=== PATIENT | female | born 1945 | race Hispanic/Latino ===

== ENCOUNTER → 2018-11-14 | Outpatient (CLI) | payer MEDICARE ==
[~2018-11-14] MED LIST: ALEN70TA10 PO; CALC-877 PO; EZET10TA13 PO; LINA5TAB PO; LISI-613 PO; METF750T2 PO; OMEP40CA37 PO
== END | disposition home or self-care (01) ==
LOC: RAH 13:47
PROVIDERS: ATTEND Family Medicine
DX: M51.36 Other intervertebral disc degeneration, lumbar region (principal); M51.26 Other intervertebral disc displacement, lumbar region; M48.061 Spinal stenosis, lumbar region without neurogenic claudication
CPT/HCPCS: 72148

== ENCOUNTER 2022-08-08 15:21 | Emergency (ER) | payer OTHER ==
[~2022-08-08 15:21] MED LIST changes: -ALEN70TA10 PO; +ALEN70TA80 PO; -LISI-613 PO; +LISI20TA24 PO; -METF750T2 PO; +METF750T46 PO; +OMEP40CA21 PO; -OMEP40CA37 PO
[2022-08-08 15:24] VITALS: BP 109/70
[2022-08-08] MEDS ORDERED: LIDOCAINE 5% TOPICAL PATCH TP ONE (16:30)
[2022-08-08] MEDS ORDERED: LIDO700A30 TP (16:32)
== END 2022-08-08 16:48 | disposition home or self-care (01) ==
LOC: EDH 15:21
DX: S83.8X1A Sprain of other specified parts of right knee, initial encounter (principal); I10 Essential (primary) hypertension; E11.9 Type 2 diabetes mellitus without complications; Z79.84 Long term (current) use of oral hypoglycemic drugs; Z79.899 Other long term (current) drug therapy; Z98.890 Other specified postprocedural states; X58.XXXA Exposure to other specified factors, initial encounter; Y93.89 Activity, other specified; Y92.89 Other specified places as the place of occurrence of the external cause; Y99.8 Other external cause status
CPT/HCPCS: 73562

== ENCOUNTER 2022-09-14 01:45 | Emergency (ER) | payer OTHER ==
[~2022-09-14] VITALS: Ht 154.9 cm; Wt 56.7 kg
[~2022-09-14 01:45] MED LIST changes: +LIDO700A30 TP
[2022-09-14 02:18] LABS: APPEARANCE,URINE CLOUDY (CLEAR); BILIRUBIN,URINE NEGATIVE (NEGATIVE); COLOR,URINE LIGHT-YELLOW (YELLOW); GLUCOSE, URINE (UA) 300 mg/dL (NEGATIVE); KETONES,URINE NEGATIVE (NEGATIVE); LEUKOCYTE ESTERASE ,URINE 500 Leu/uL (NEGATIVE); NITRATE,URINE NEGATIVE (NEGATIVE); PH,URINE 6.5 (5.0-8.0); PROTEIN,URINE NEGATIVE (NEGATIVE); UROBILINOGEN,URINE 0.2 mg/dL (0.2-1.0)
[2022-09-14 02:23] LABS: BACTERIA,URINE MOD /HPF (None Seen); MUCUS,URINE RARE LPF (None Seen); WBC,URINE TNTC /HPF (0-1)
[2022-09-14] MEDS ORDERED: ONDANSETRON 4MG INJ IVP ONE (02:30)
[2022-09-14] MEDS ORDERED: FAMOTIDINE 20MG TAB PO ONE (02:30)
[2022-09-14] MEDS ORDERED: MORPHINE 2 MG SYG IVP ONE (02:30)
[2022-09-14] MEDS ORDERED: CEFTRIAXONE 2GM VIAL IVPB ONE (02:30)
[2022-09-14] MEDS ORDERED: 0.9%NACL 1000ML 1,000 ML IV ONE (02:30)
[2022-09-14 02:32] LABS: BASOPHILS % (AUTO) 0.6 % (0.0-5.0); EOSINOPHILS % (AUTO) 1.3 % (0.0-8.0); HEMATOCRIT 44.2 % (36-48); LYMPHOCYTES % (AUTO) 27.2 % (21.0-51.0); MEAN CORPUSCULAR HEMOGLOBIN 29.4 pg (27.0-33.0); MEAN CORPUSCULAR HGB CONC 33.5 g/dL (32.0-36.0); MEAN CORPUSCULAR VOLUME 87.9 fL (79-99); MONOCYTES % (AUTO) 8.8 % (3.0-13.0); NEUTROPHILS % (AUTO) 61.7 % (40.0-77.0); PLATELET COUNT (AUTO) 156 K/uL (130-400); RED BLOOD CELL COUNT(AUTO) 5.03 MIL/uL (4.00-5.50); RED CELL DISTRIBUTION WIDTH 12.7 % (11.0-15.5); WHITE BLOOD COUNT (AUTO) 6.8 K/uL (4.8-10.8)
[2022-09-14 03:14] LABS: CREATININE 0.7 mg/dL (0.5-1.5); POTASSIUM 4.1 mmol/L (3.5-5.1)
[2022-09-14 03:18] LABS: ALBUMIN 3.8 g/dL (3.5-5.0); TOTAL PROTEIN, SERUM 7.4 g/dL (6.0-8.3)
[2022-09-14] MEDS ORDERED: METO-296 PO (04:17)
[2022-09-14] MEDS ORDERED: PHEN-847 PO (04:17)
[2022-09-14] MEDS ORDERED: CEPH500B PO (04:17)
[2022-09-14 04:30] VITALS: BP 130/73
== END 2022-09-14 04:31 | disposition home or self-care (01) ==
LOC: EDH 01:45
DX: N39.0 Urinary tract infection, site not specified (principal); E11.9 Type 2 diabetes mellitus without complications; Z90.49 Acquired absence of other specified parts of digestive tract
CPT/HCPCS: 99285; 96365; 96375; 84484; 80053; 83690; 85025; 87077; 87088; 87186; 81001; 36415; 74021; 93005; J2270; J7030; J0696; J2405

== ENCOUNTER 2022-09-23 17:38 | Emergency (ER) | payer OTHER ==
[~2022-09-23] VITALS: Ht 154.9 cm; Wt 55.3 kg
[~2022-09-23 17:38] MED LIST changes: +CEPH500B PO; +METO-296 PO; +PHEN-847 PO
[2022-09-23 18:19] LABS: BASOPHILS % (AUTO) 0.8 % (0.0-5.0); EOSINOPHILS % (AUTO) 0.7 % (0.0-8.0); HEMATOCRIT 49.7 % (36-48); LYMPHOCYTES % (AUTO) 30.6 % (21.0-51.0); MEAN CORPUSCULAR HEMOGLOBIN 29.2 pg (27.0-33.0); MEAN CORPUSCULAR HGB CONC 32.8 g/dL (32.0-36.0); MEAN CORPUSCULAR VOLUME 88.9 fL (79-99); MONOCYTES % (AUTO) 6.1 % (3.0-13.0); NEUTROPHILS % (AUTO) 61.3 % (40.0-77.0); PLATELET COUNT (AUTO) 182 K/uL (130-400); RED BLOOD CELL COUNT(AUTO) 5.59 MIL/uL (4.00-5.50); RED CELL DISTRIBUTION WIDTH 12.7 % (11.0-15.5); WHITE BLOOD COUNT (AUTO) 6.1 K/uL (4.8-10.8)
[2022-09-23 18:49] LABS: CREATININE 0.8 mg/dL (0.5-1.5); TOTAL PROTEIN, SERUM 8.6 g/dL (6.0-8.3)
[2022-09-23 20:11] LABS: APPEARANCE,URINE CLEAR (CLEAR); BILIRUBIN,URINE NEGATIVE (NEGATIVE); COLOR,URINE LIGHT-YELLOW (YELLOW); GLUCOSE, URINE (UA) >=1000 mg/dL (NEGATIVE); KETONES,URINE NEGATIVE (NEGATIVE); LEUKOCYTE ESTERASE ,URINE NEGATIVE Leu/uL (NEGATIVE); NITRATE,URINE NEGATIVE (NEGATIVE); OCCULT BLOOD,URINE NEGATIVE (NEGATIVE); PROTEIN,URINE NEGATIVE (NEGATIVE); UROBILINOGEN,URINE 0.2 mg/dL (0.2-1.0)
[2022-09-23 20:14] LABS: MUCUS,URINE RARE LPF (None Seen); RBC,URINE 0-1 /HPF (0-1); SQUAMOUS EPITHELIAL CELL,UR RARE /HPF (0-2); WBC,URINE 0-1 /HPF (0-1)
[2022-09-23] MEDS ORDERED: ASPI-1005 PO (22:12)
[2022-09-23] MEDS ORDERED: NITR.4 SL (22:12)
[2022-09-23 22:16] VITALS: BP 130/68
== END 2022-09-23 22:21 | disposition home or self-care (01) ==
LOC: EDH 17:38
DX: R07.9 Chest pain, unspecified (principal); E11.9 Type 2 diabetes mellitus without complications; Z88.8 Allergy status to other drugs, medicaments and biological substances; Z79.899 Other long term (current) drug therapy; Z90.710 Acquired absence of both cervix and uterus; Z90.49 Acquired absence of other specified parts of digestive tract
CPT/HCPCS: 36415; 71045; 80053; 81001; 83880; 84484; 85025; 93005

== ENCOUNTER 2024-05-16 21:54 | Emergency (ER) | payer OTHER ==
[~2024-05-16] VITALS: Ht 154.9 cm; Wt 56.7 kg
[~2024-05-16 21:54] MED LIST changes: +ASPI-1005 PO; -EZET10TA13 PO; +EZET10TA81 PO; +NITR.4 SL
[2024-05-16 22:36] LABS: BASOPHILS # (AUTO) 0.05 K/uL (0.00-0.20); BASOPHILS % (AUTO) 0.6 % (0.0-5.0); EOSINOPHILS # (AUTO) 0.05 K/uL (0.00-0.70); EOSINOPHILS % (AUTO) 0.6 % (0.0-8.0); HEMATOCRIT 46.4 % (36-48); IMMATURE GRANULOCYTE ABSOLUTE 0.02 K/uL (0-1); LYMPHOCYTES # (AUTO) 2.1 K/uL (1.0-4.8); LYMPHOCYTES % (AUTO) 25.4 % (21.0-51.0); MEAN CORPUSCULAR HEMOGLOBIN 29.9 pg (27.0-33.0); MEAN CORPUSCULAR HGB CONC 34.9 g/dL (32.0-36.0); MEAN CORPUSCULAR VOLUME 85.8 fL (79-99); MONOCYTES # (AUTO) 0.6 K/uL (0.1-1.0); MONOCYTES % (AUTO) 7.4 % (3.0-13.0); NEUTROPHILS # (AUTO) 5.4 K/uL (1.8-7.7); NEUTROPHILS % (AUTO) 65.8 % (40.0-77.0); PLATELET COUNT (AUTO) 156 K/uL (130-400); RED BLOOD CELL COUNT(AUTO) 5.41 MIL/uL (4.00-5.50); RED CELL DISTRIBUTION WIDTH 12.3 % (11.0-15.5); WHITE BLOOD COUNT (AUTO) 8.2 K/uL (4.8-10.8)
[2024-05-16 22:44] LABS: CREATININE 0.8 mg/dL (0.5-1.0); POTASSIUM 3.7 mmol/L (3.5-5.1)
--- NOTE | 2024-05-16 22:57 | ERN ---
ED Note History of Present Illness Stated Complaint: BACK PAIN Chief Complaint: Back Pain-No Injury Time Seen by MD: 22:10 Dictation: This is a 78-year-old female who has chronic low back pain presented to the emergency room stating that her pain has been severe and she ran out of tr amadol. She stated that she has had the back pain for many years and she has had extensive evaluation including x-rays as well as CTs which showed degenerative disc disease osteoporosis spondylosis and also herniated discs. She was given tramadol by her PCP. Recently she also underwent apparently an x- ray of the spine but she has never been evaluated for any epidural injections physical therapy. She stated for the past 1 week she has not slept due to constant pain and she has tried taking [id number] Tylenol and ibuprofen to no avail. No history of any bladder or bowel incontinence she is able to ambulate. No weakness of the lower extremities. Pain is located mostly in the lumbar area and on the right side it radiates down the gluteal area all the way to the end of the leg but left side is not as severe. No history of any recent falls. She stated that she was told to take the tramadol 50 mg twice a day however she took it 3 times a day due to severe pain that she could not tolerate and hence she ran out Temperature 98.5 pulse 104 respirations 18 blood pressure 121/66 with a pulse oximetry of 98% on room air Her chronic medical problems include diabetes mellitus, osteoporosis and chronic back pain Allergies: Coded Allergies: celecoxib (Unverified Allergy, Unknown, THROAT SWELLS, 03/08/16) Home Meds Active Scripts Lidocaine (Lidocaine) 4 % Adh..patch, 1 PATCH TP DAILY for 10 Days, #10 PATCH 0 Refills Prov:SAMIRA BOYD MD 05/17/24 Tramadol Hcl (Tramadol HCl) 50 Mg Tablet, 50 MG PO TID for pain for 7 Days, #21 TAB 0 Refills Prov:SAMIRA BOYD MD 05/16/24 Prednisone (Prednisone) 20 Mg Tablet, 1 TAB PO AD for 6 Days, #14 TAB 0 Refills TAKE 1 TAB BY MOUTH THREE TIMES PER DAY X3 DAYS, THEN TAKE 1 TAB BY MOUTH TWICE A DAY X2 DAYS, THEN TAKE 1 TAB BY MOUTH ONCE A DAY X1 DAY. Prov:SAMIRA BOYD MD 05/16/24 Cyclobenzaprine HCl (Cyclobenzaprine HCl) 5 Mg Tablet, 1 TAB PO TIDP PRN for muscle spasms for 10 Days, #30 TAB 0 Refills Prov:SAMIRA BOYD MD 05/16/24 Aspirin (ASPIRIN 81MG CHEW TAB) 81 Mg Tab.chew, 81 MG PO DAILY, #100 TAB.CHEW Prov:MEDINA KHAN MD 09/23/22 Nitroglycerin (Nitrostat/Nitroquick) 0.4 Mg Sltb, 0.4 MG SL AD, #20 TAB.SL If you develop chest pain take 1 tablet sublingual every 5 minutes as needed no more than 3 pills Prov:MEDINA KHAN MD 09/23/22 Metoclopramide HCl (Reglan) 10 Mg Tablet, 10 MG PO TID PRN for NAUSEA, #30 TAB 2 Refills Prov:ASHER RAMIRES Sr., MD 09/14/22 Phenazopyridine HCl (Pyridium) 200 Mg Tab, 200 MG PO TIDPC, #5 TAB 0 Refills TAKE WITH FOOD TO PREVENT STOMACH UPSET. Prov:ASHER RAMIRES Sr., MD 09/14/22 Cephalexin Monohydrate (Keflex) 500 Mg Cap, 500 MG PO QID for 7 Days, #28 CAP Prov:ASHER RAMIRES Sr., MD 09/14/22 Lidocaine (Lidocaine) 1 Each Adh..patch, 1 EACH TP BID for pain for 30 Days, #60 ADH.PATCH Prov:JULISSA CHILEL NP 08/08/22 Calcium Carbonate/Vitamin D3 (Calcium 500 + D Tablet) 1 Each Tablet, 1 EACH PO TIDAC, #60 TAB Prov:RIVAS DEVINE MD 03/10/16 Reported Medications Lisinopril (Lisinopril) 20 Mg Tablet, 20 MG PO AM, TAB 03/08/16 Alendronate Sodium (Alendronate Sodium) 70 Mg Tablet, 70 MG PO WEEKLY, TAB 03/08/16 Omeprazole (Omeprazole) 40 Mg Capsule.dr, 40 MG PO HS, CAP 03/08/16 Ezetimibe (Zetia) 10 Mg Tablet, 10 MG PO HS, TAB 03/08/16 Linagliptin (Tradjenta) 5 Mg Tablet, 5 MG PO PCBKFST, TAB 03/08/16 Metformin HCl (Metformin HCl ER) 750 Mg Tab.er.24h, 750 MG PO BIDMEALS, TAB 03/08/16 Past Medical History Past Medical History: Diabetes-Type II Additional Past Medical Hx: OSTIOPOROSIS , BACK PAIN Surgical History: Hysterectomy, Cholecystectomy, Other Surgical History Other: RT ROTATOR CUFF, LEFT EYE, LEFT ANKLE Family History: Negative Social History: Negative, Lives with family History: Not Applicable RN Note Reviewed/Agreed w/PFSH: Yes Review of System Dictation Constitutional: Negative for fever,chills, and weight loss Eyes: Negative for injury, pain,redness, and discharge ENT: Negative for injury,pain or swelling Cardiovascular: Negative for chest pain, palpitations, and edema Respiratory: Negative for shortness of breath, cough, and wheezing, Abdomen/GI: Negative for abdominal pain, nausea, vomiting, diarrhea, and constipation Back: Negative for injury severe back pain as described in the history of present illness : Negative for injury, bleeding and discharge MS/Extremity: Negative for injury and deformity Skin: Negative for rash, and discoloration Neuro: Negative for headache, weakness, numbness, tingling, and seizure Psych: Negative for suicide ideation, homicidal ideation, and hallucinations Initial Vital Sign VS Vital Signs Date Time Temp Pulse Resp B/P (MAP) Pulse Ox O2 Delivery O2 Flow Rate FiO2 05/16/24 21:55 98.4 104 18 121/66 98 Room Air 05/16/24 23:36 0 21 Physical Exam Dictation General: awake, alert, NAD Head/Face: Normocephalic, atraumatic Eyes: PERRL, EOMI, vision at baseline ENT: oral cavity clear, TMs clear, no signs of infection Neck: Trachea midline, supple, no nuchal rigidity Cardiovascular: RRR, normal S1/S2, No MRGs, no JVD Respiratory: CTAB, no respiratory distress, No rales or wheezes Abdomen: Soft, non-tender, non-distended, normal bowel sounds, no guarding or rebound. Skin: Warm, dry, normal turgor, no rash MS/Extremity: Pulses equal, no cyanosis, neurovascular intact, FROM back pain is mostly in the lower lumbar area and there was some evidence of muscle spasm. There is no induration erythema local signs of infection. Neuro: COAx4, GCS 15, strength 5/5, CN 2-12 intact, normal cerebellar exam, normal gait, Psych: Normal behavior, mood, and affect normal Extremities-trace edema without any palpable cords, Homans sign is negative Results (Laboratory/Radiology) Laboratory/Radiology Laboratory Tests Test 05/16/24 22:30 White Blood Count 8.2 K/uL (4.8-10.8) Red Blood Count 5.41 MIL/uL (4.00-5.50) Hemoglobin 16.2 g/dL (12.0-16.0) H Hematocrit 46.4 % (36-48) Mean Corpuscular Volume 85.8 fL (79-99) Mean Corpuscular Hemoglobin 29.9 pg (27.0-33.0) Mean Corpuscular Hemoglobin Concent 34.9 g/dL (32.0-36.0) Red Cell Distribution Width 12.3 % (11.0-15.5) Platelet Count 156 K/uL (130-400) Mean Platelet Volume 11.1 fL (7.5-10.5) H Immature Granulocyte % (Auto) 0.2 % (0-1) Neutrophils (%) (Auto) 65.8 % (40.0-77.0) Lymphocytes (%) (Auto) 25.4 % (21.0-51.0) Monocytes (%) (Auto) 7.4 % (3.0-13.0) Eosinophils (%) (Auto) 0.6 % (0.0-8.0) Basophils (%) (Auto) 0.6 % (0.0-5.0) Neutrophils # (Auto) 5.4 K/uL (1.8-7.7) Lymphocytes # (Auto) 2.1 K/uL (1.0-4.8) Monocytes # (Auto) 0.6 K/uL (0.1-1.0) Eosinophils # (Auto) 0.05 K/uL (0.00-0.70) Basophils # (Auto) 0.05 K/uL (0.00-0.20) Absolute Immature Granulocyte (auto 0.02 K/uL (0-1) Nucleated Red Blood Cells 0.0 % (0.0-0.19) Sodium Level 138 mmol/L (136-145) Potassium Level 3.7 mmol/L (3.5-5.1) Chloride Level 100 mmol/L (101-111) L Carbon Dioxide Level 27 mmol/L (21-32) Blood Urea Nitrogen 20 mg/dL (7-18) H Creatinine 0.8 mg/dL (0.5-1.0) Glomerular Filtration Rate Calc 76 mL/min (>90) Random Glucose 242 mg/dL (70-105) H Total Calcium 9.0 mg/dL (8.5-10.1) Labs Reviewed?: Yes ED Course ED Course Orders Procedure Category Date Status Time Cbc With Differential LAB 05/16/24 Complete 22:10 Basic Metabolic Panel LAB 05/16/24 Complete 22:10 Hydromorphone 1 Mg PHA 05/16/24 Complete Inj (Dilaudid 1mg Inj 22:30 Methylprednisolone PHA 05/16/24 Complete Succ 40mg (Solu-Medro 22:30 Cyclobenzaprine Hcl PHA 05/16/24 Complete (Cyclobenzaprine Hcl 22:30 Current Medications Medications (Trade) Dose Ordered Sig/Jaylon Route PRN Reason Start Time Stop Time Status Last Admin Dose Admin Cyclobenzaprine HCl (Cyclobenzaprine HCl) 5 mg ONCE ONCE PO 05/16/24 22:30 05/16/24 22:46 DC 05/16/24 23:16 Hydromorphone HCl (DiLAUDid 1MG INJ) 1 mg ONCE ONCE IVP 05/16/24 22:30 05/16/24 22:46 DC 05/16/24 23:16 Methylprednisolone Sodium Succinate (Solu-medROL 40MG) 60 mg ONCE ONCE IVP 05/16/24 22:30 05/16/24 22:46 DC 05/16/24 23:16 Vital Signs Date Time Temp Pulse Resp B/P (MAP) Pulse Ox O2 Delivery O2 Flow Rate FiO2 05/16/24 23:36 98.2 101 20 120/60 99 Room Air* 0 21 05/16/24 21:55 98.4 104 18 121/66 98 Room Air We will administer medications according to the patient's complaint. Once the results are available, will review and personally interpreted the labs to rule out any acute life-threatening emergency the trach require immediate intervention and treatment. I will then re-evaluate the patient after treatment and diagnostic exams have return to determine whether the patient requires any further testing, can safely be discharged home or need further admission to hospital for additional treatment and evaluation. Labs reviewed CBC BNP 7 are within normal limits blood glucose was 242 Urinalysis had small amount of leuko esterase but no WBCs. She responded very well to the pain medication and steroid. I had a very long discussion with the patient and her granddaughter and went over the game plan and upon discharge for her to follow up with the primary care physician and get a referral for pain management including epidural injections and long-acting pain medications. She verbalized full understanding and was very appreciative Medical Decision Making MDM MDM: Differential diagnosis: Chronic back pain, lumbar radiculopathy, lumbar spondylosis, herniated intervertebral discs Rationale: Tests considered and ordered secondary to shared decision making include: Previous outside records reviewed: Old ER visits. Risk of complication and/or morbidity or mortality of patient management: None Medications-Per medication reconciliation Need for hospitalization: Patient does not meet criteria for hospitalization. Need for emergency major/minor surgery: No There are no social concerns with this patient. Prescription drug management Prescriptions will include symptomatic care Patient's prior external medical records from other ER visits were reviewed by me as indicated. Prior testing and results from previous visits were reviewed. Prior tests were taken into account with medical decision making and resource utilization, independent historian/historians were used to obtain complete medical history. I independently interpreted the test that were performed, results were reviewed by me and considered findings on radiology if ordered. Medical management and examination interpretation discussions were had by me with other qualified healthcare professionals as indicated for the patient's care. Problem List Problem List: (1) Herniated intervertebral disc of lumbar spine (2) Chronic back pain (3) Lumbar radiculopathy DX & DISP Disposition: Discharge Departure Impression: Primary Impression: Chronic back pain Additional Impressions: Lumbar radiculopathy, Herniated intervertebral disc of lumbar spine Condition: Stable Scripts Lidocaine (Lidocaine) 4 % Adh..patch 1 PATCH TP DAILY for 10 Days, #10 PATCH 0 Refills Prov: SAMIRA BOYD MD 05/17/24 Tramadol Hcl (Tramadol HCl) 50 Mg Tablet 50 MG PO TID for pain for 7 Days, #21 TAB 0 Refills Prov: SAMIRA BOYD MD 05/16/24 Prednisone (Prednisone) 20 Mg Tablet 1 TAB PO AD for 6 Days, #14 TAB 0 Refills TAKE 1 TAB BY MOUTH THREE TIMES PER DAY X3 DAYS, THEN TAKE 1 TAB BY MOUTH TWICE A DAY X2 DAYS, THEN TAKE 1 TAB BY MOUTH ONCE A DAY X1 DAY. Prov: SAMIRA BOYD MD 05/16/24 Cyclobenzaprine HCl (Cyclobenzaprine HCl) 5 Mg Tablet 1 TAB PO TIDP PRN for muscle spasms for 10 Days, #30 TAB 0 Refills Prov: SAMIRA BOYD MD 05/16/24 Additional Instructions: Patient and the caregiver have been informed of all the diagnostic tests and the imaging conducted during the today's visit to the emergency room and has verbalized understanding of the results I have personally reviewed and interpreted all diagnostic exams performed here in the ER today as well as the vital signs documented by the nursing staff. The patient is now being discharged to home and should follow up with the primary care physician or the specialist as directed by the ER staff. Follow-up with primary care provider in 1 to 2 days. Take medications as directed here in the emergency room. Okay to continue home medications unless otherwise discussed during your visit in the emergency room today. Return to your nearest emergency room if symptoms worsen or if there is no improvement. C all 911 if you need immediate assistance. Take Tylenol or Motrin [id number] as needed and if no contraindications are present. Increase oral hydration. A wound culture or urine culture was ordered here in the emergency room department please follow-up with primary care provider and advise them to get repeat ports from our facility. If you had any Brett wrap/splints that were applied here, please do not remove them until you see your primary care or specialty. Patient needs to be evaluated for longer time pain relief including epidural injections and chronic pain management. Referrals: TIARA STEPHENSON MD (PCP) SAMIRA BOYD MD May 16, 2024 22:56
[2024-05-16] MEDS: Solu-medROL 40MG VIAL IVP ONE (23:16)
[2024-05-16] MEDS: hydroMORPHone 1 MG INJ IVP ONE (23:16)
[2024-05-16] MEDS: CYCLOBENZAPRINE HCL 10 MG TABLET PO ONE (23:16)
[2024-05-16 23:36] VITALS: BP 120/60; PULSE 101; RESP 20; TEMP 98.2; O2SAT 99
[2024-05-16] MEDS ORDERED: TRAM50TA4 PO (23:58)
[2024-05-16] MEDS ORDERED: PRED20TA3 PO (23:58)
[2024-05-16] MEDS ORDERED: CYCL5TAB3 PO (23:58)
[2024-05-17] MEDS ORDERED: LIDO1ADH82 TP (00:01)
== END 2024-05-17 00:27 | disposition home or self-care (01) ==
LOC: EDH 21:54
DX: G89.29 Other chronic pain (principal); M54.50 Low back pain, unspecified; M51.16 Intervertebral disc disorders with radiculopathy, lumbar region; E11.9 Type 2 diabetes mellitus without complications; Z79.82 Long term (current) use of aspirin; Z90.49 Acquired absence of other specified parts of digestive tract; Z90.710 Acquired absence of both cervix and uterus; Z98.890 Other specified postprocedural states
CPT/HCPCS: 99284; 96374; 96375; 80048; 85025; 36415; J2919; J1171